=== PATIENT | male | born 1990 | race American Indian/Alaskan Native ===

== ENCOUNTER 2017-08-21 02:25 | Emergency (ER) | payer SELFPAY ==
[2017-08-21 02:57] VITALS: BP 132/76
== END 2017-08-21 11:48 | disposition left against medical advice (07) ==
LOC: ED 02:25
DX: M54.2 Cervicalgia (principal); Z53.21 Procedure and treatment not carried out due to patient leaving prior to being seen by health care provider

== ENCOUNTER 2017-11-20 22:39 | Emergency (ER) | payer SELFPAY ==
[2017-11-21] MEDS ORDERED: TETRACAINE 0.5% OU ONE (01:33)
[2017-11-21] MEDS ORDERED: FUL-GLO OP ONE (01:33)
[2017-11-21] MEDS ORDERED: MOTRIN PO ONE (03:09)
--- NOTE | 2017-11-21 03:13 | Emergency Department Report ---
Eye Injury/Foreign Body - HPI Duration: 6 days Eye Location: Left Severity: Moderate Tetanus Status: Up to Date Eye Symptoms: Eye Pain: Yes, Blurred Vision: Yes, Eye Redness: Yes, Grinding/ Hammering Metal: No, Used Eye Protection: No, Contact Lens Use: No, Recalls Injury: No, Photophobia: Yes Other History: 27-year-old -[place] male comes in with complaints of 6 days of left eye that's been red with watery discharge. Patient works as a marie. He feels like there is something in his eye. He complains of decreased vision watery discharge pain 6 out of 10. No past medical history currently takes no medication and has no known drug allergies. ED Review of Systems ROS: Stated complaint: EYE INFECTION Other details as noted in HPI Constitutional: denies: chills, fever Eyes: eye pain (left), eye discharge (left eye), vision change (left) ENT: denies: ear pain, throat pain Respiratory: denies: cough, shortness of breath, wheezing Cardiovascular: denies: chest pain, palpitations Endocrine: no symptoms reported Gastrointestinal: denies: abdominal pain, nausea, diarrhea Genitourinary: denies: urgency, dysuria Musculoskeletal: denies: back pain, joint swelling, arthralgia Skin: denies: rash, lesions Neurological: denies: headache, weakness, paresthesias Psychiatric: denies: anxiety, depression Hematological/Lymphatic: denies: easy bleeding, easy bruising ED Past Medical Hx - Past Medical History Previous Medical History?: No - Surgical History Past Surgical History?: No - Social History Smoking Status: Never Smoker Substance Use Type: Marijuana - Medications Home Medications: Home Medications Medication Instructions Recorded Confirmed Last Taken Type Gentamicin 0.3% Ophth Oint 1 applicatio OP Q4H 10 Days #1 tube 11/21/17 Unknown Rx Ibuprofen [Motrin 800 MG tab] 800 mg PO Q8H PRN #15 tablet 11/21/17 Unknown Rx Eye Injury Exam - Exam General: Vital signs noted. No distress. Alert and acting appropriately. - Visual Acuity Left Vision Acuity Degree: 20/100 Eye Exam: Left Injection, Left Fluorescein Uptake, Left Photophobia, Both EOMI, Neither Chemosis, Neither Abnormal Pupil, Neither Eye Foreign Body, Neither Lid Foreign Body, Neither Mucous Discharge, Neither Purulent Discharge, Neither Corneal Edema Right Vision Acuity Degree: 20/40 Bilateral Vision Acuity Degree: 20/40 Exam: Patient has no lymphadenopathy no facial swelling. Periorbital edema. Left eye sclera injected with uptake to the left lower sclera are approximate 5: 00. ED Course Vital Signs 11/20/17 23:07 Temperature 98.6 F Pulse Rate 89 Respiratory 18 Rate Blood Pressure 150/93 O2 Sat by Pulse 98 Oximetry ED Medical Decision Making - Medical Decision Making Patient has been evaluated by this provider Joseline Headley. I asked Dr. King also visualized the eye as well. He recommends gentamicin eyedrops and to follow-up with knotting machine operator. This plan was discussed with patient and he verbalized understanding. Critical care attestation.: If time is entered above; I have spent that time in minutes in the direct care of this critically ill patient, excluding procedure time. ED Disposition Clinical Impression: Scleral injection Disposition: DC- TO HOME OR SELFCARE Is pt being admited?: No Does the pt Need Aspirin: No Condition: Stable Additional Instructions: Please use antibiotic to the eye as prescribed. It is very important for you to follow up with an inspector eyeglass frames to prevent any long-term effects to your eye. Prescriptions: Gentamicin 0.3% Ophth Oint 1 applicatio OP Q4H 10 Days #1 tube Ibuprofen [Motrin 800 MG tab] 800 mg PO Q8H PRN #15 tablet PRN Reason: Pain Referrals: PRIMARY CARE, [Primary Care Provider] - 3-5 Days ELLIOT LOZANO MD [Staff Physician] - 3-5 Days [facility], [facility] [Provider Group] - 3-5 Days [facility] [Provider Group] - 3-5 Days Forms: Work/School Release Form(ED)
[2017-11-21 03:31] VITALS: BP 140/72
== END 2017-11-21 03:31 | disposition home or self-care (01) ==
LOC: ED 22:39
DX: H15.89 Other disorders of sclera (principal); F12.10 Cannabis abuse, uncomplicated
CPT/HCPCS: 99283